=== PATIENT | male | born 1995 | race African-American/Black ===

== ENCOUNTER 2016-06-28 18:30 | Emergency (ER) | payer OTHER ==
[~2016-06-28] VITALS: Ht 176.5 cm; Wt 93.0 kg
[2016-06-28 18:39] VITALS: TEMP 36.8; Ht 176.5 cm; Wt 93.0 kg
[2016-06-28] MEDS ORDERED: KETOROLAC TROMETHAMINE 30 MG/ML VIAL IV STA (18:50)
[2016-06-28] MEDS ORDERED: ONDANSETRON INJ 2 MG/ML 2 ML VIAL IV STA (18:50)
[2016-06-28] MEDS ORDERED: SODIUM CHLORIDE 0.9% 1000ML 1,000 ML IV STA (18:50)
[2016-06-28 19:15] LABS: BASO % 0.2 %; BASO ABS # 0.02 K/uL (0-0.2); COMPLETE YES; EOS % 0.2 %; HEMATOCRIT 48.8 % (42-52); IG% 0.3 %; LYMPH % 16.5 %; LYMPH ABS # 1.78 K/uL (1.2-3.4); MEAN CELL VOLUME 85.5 fL (80-100); MEAN CORPUSCULAR HEMOGLOBIN 31.9 pg (25-34); MEAN CORPUSCULAR HGB CONC 37.3 g/dl (32-36); MEAN PLATELET VOLUME 10.8 fL (7.4-10.4); MONO % 8.4 %; NEUT % 74.4 %; PLATELET COUNT 230 K/uL (130-400); RED BLOOD COUNT 5.71 M/uL (4.7-6.1); WHITE BLOOD COUNT 10.79 K/uL (4.8-10.8)
[2016-06-28] MEDS ORDERED: GI COCKTAIL PO STA (19:17)
[2016-06-28] MEDS ORDERED: ALUMINUM/MAGNESIUM SUSP 30 ML UDC ONE (19:26)
[2016-06-28] MEDS ORDERED: LIDOCAINE HCL 2% VISC SOLN 20 ML UDC ONE (19:26)
[2016-06-28 19:30] LABS: URINE APPEARANCE CLOUDY (CLEAR); URINE BILIRUBIN NEG (NEG); URINE COLOR YELLOW; URINE NITRITE NEG (NEG); URINE SPECIFIC GRAVITY 1.029 (1.000-1.030); UROBILINOGEN NEG (NEG); ZZUR CULT IF INDIC CLEAN CATCH NO
[2016-06-28 19:31] LABS: MANUAL MICROSCOPIC REQUIRED? NO; REVIEW REQ? NO
[2016-06-28 19:35] LABS: BUN/CREATININE RATIO 15.5 (10-20); CALCIUM 9.2 mg/dl (8.5-10.1); CREATININE 1.3 mg/dl (0.60-1.40); POTASSIUM 3.7 mmol/L (3.5-5.1)
--- NOTE | 2016-06-28 20:43 | DIAGNOSTIC IMAGING REPORT ---
ULTRASOUND RIGHT UPPER QUADRANT ABDOMEN CLINICAL HISTORY: Vomiting. COMPARISON STUDY: No priors. TECHNIQUE: Real-time, grayscale, and color flow sonography of the right upper quadrant of the abdomen was performed. Images are reviewed in the transverse and longitudinal planes. FINDINGS: Liver: The liver is normal in size and echotexture. There is no intrahepatic biliary ductal dilatation. The main portal vein is patent. Gallbladder: The gallbladder is normal in appearance. No gallstones are identified. There is no gallbladder wall thickening or pericholecystic fluid. A sonographic Puente's sign is reportedly absent. The common bile duct measures up to 0.3 cm in diameter. Pancreas: Visualized portions of the pancreatic head and body are normal in appearance. The splenic vein is patent. Right kidney: Survey images of the right kidney demonstrate normal size. Cortical echotexture appears increased. There is no hydronephrosis. Ascites: None. IMPRESSION: 1. There is no acute sonographic abnormality identified in the right upper quadrant. No gallstones are identified. 2. Cortical echotexture of the right kidney appears increased. Correlate clinically and with serum creatinine levels for evidence of medical renal disease. Electronically signed by: Caleb Ernst M.D. 06/28/2016 8:40 PM Dictated Date/Time: 06/28/2016 8:39 PM
[2016-06-28] MEDS ORDERED: MoRPHine SULFATE 4 MG/ML 1 ML CARP\\VIAL IV STA (20:52)
--- NOTE | 2016-06-28 20:54 | DIAGNOSTIC IMAGING REPORT ---
PA CHEST WITH ABDOMINAL SERIES CLINICAL HISTORY: Generalized abdominal pain. Nausea and vomiting. FINDINGS: A PA chest radiograph is obtained. No prior studies are available for comparison at the time of dictation. The cardiomediastinal silhouette is unremarkable. The lungs and pleural spaces are clear. No pneumothorax is seen. The bony thorax is grossly intact. Supine and erect abdominal radiograph are correlated with abdominal ultrasound dated 06/28/2016. There is a nonobstructed abdominal bowel gas pattern. No intraperitoneal free air is seen. No abnormal abdominal calcifications are identified. There is no evidence of organomegaly. The lumbosacral spine and bony pelvis appear intact. IMPRESSION: 1. No active disease in the chest. 2. Unremarkable abdominal radiographs. Electronically signed by: Caleb Ernst M.D. 06/28/2016 8:52 PM Dictated Date/Time: 06/28/2016 8:50 PM
[2016-06-28] MEDS ORDERED: FAMOTIDINE 20 MG TAB PO STA (20:59)
[2016-06-28] MEDS ORDERED: ONDA4TAB46 PO (21:06)
[2016-06-28] MEDS ORDERED: FAMO20TA11 PO (21:06)
[2016-06-28 21:19] VITALS: BP 128/79; PULSE 77; O2SAT 96
--- NOTE | 2016-06-28 21:45 | EMERGENCY ROOM VISIT NOTE ---
History Report prepared by Scribe: Rochelle Figueroa Under the Supervision of: Dr. Sonny Kamara D.O. First contact with patient: 18:42 Chief Complaint: ABDOMINAL PAIN Stated Complaint: ABD PAIN History of Present Illness The patient is a 20 year old male who presents to the Emergency Room with complaints of persistent abdominal pain that started last night. He is accompanied by several friends. The patient rates his pain as a 10/10. He has been nauseous since last night and states he vomited last night, again this morning and just prior to arrival at the ED. He denies any diarrhea. The patient admits to heavy ETOH use last night. He states he was drinking "whiskey , vodka and rum". He reports the nausea and vomiting started shortly after he finished drinking. Something similar has never happened to him before. He denies any history of previous abdominal surgeries. He notes his Father was sick over [place], but he is not sure what he had. The patient denies any headache, change in vision, fevers, chest pain, shortness of breath, pain with urination, and melena. Source of History: patient Onset: this morning Position: abdomen Symptom Intensity: 10/10 Timing: other (persistent) Modifying Factors (Worsening): other (heavy ETOH use last night) Associated Symptoms: + diarrhea, + nausea, + vomiting, No SOB, No chest pain , No fevers, No headache, No melena, No urinary symptoms Review of Systems See HPI for pertinent positives & negatives. A total of 10 systems reviewed and were otherwise negative. Past Medical & Surgical Medical Problems: (1) No significant past medical history Social History Smoking Status: Former Smoker Alcohol Use: occasionally Drug Use: none Marital Status: single Housing Status: lives with roommate Occupation Status: [employer] student Current/Historical Medications Scheduled Famotidine (Pepcid), 20 MG PO DAILY Scheduled PRN Ondansetron Hcl (Zofran), 4 MG PO TID PRN for Nausea Allergies Coded Allergies: No Known Allergies (Unverified , 06/28/16) Physical Exam Vital Signs Date Time Temp Pulse Resp B/P Pulse Ox O2 Delivery O2 Flow Rate FiO2 06/28/16 21:19 77 18 128/79 96 06/28/16 18:39 36.8 84 18 123/81 97 Room Air Physical Exam GENERAL: Patient is sitting up in bed, alert, well appearing, well nourished, in moderate distress, holding abdomen, non-toxic EYE EXAM: normal conjunctiva OROPHARYNX: no exudate, no erythema, lips, buccal mucosa, and tongue normal and mucous membranes are moist NECK: supple, no nuchal rigidity, no adenopathy, non-tender LUNGS: Clear to auscultation. Normal chest wall mechanics HEART: no murmurs, S1 normal and S2 normal ABDOMEN: abdomen soft, non-tender, normo-active bowel sounds, no masses, no rebound or guarding. BACK: Back is symmetrical on inspection and there is no deformity, no midline tenderness, no CVA tenderness. SKIN: no rashes and no bruising UPPER EXTREMITIES: upper extremities are grossly normal. LOWER EXTREMITIES: No pitting edema. NEURO EXAM: Normal sensorium, cranial nerves II-XII grossly intact, normal speech, no gross weakness of arms, no gross weakness of legs. Gross sensation intact. Medical Decision & Procedures ER Provider Diagnostic Interpretation: This X-Ray was reviewed and interpreted by myself and the radiologist. PA CHEST WITH ABDOMINAL SERIES IMPRESSION: 1. No active disease in the chest. 2. Unremarkable abdominal radiographs. Electronically signed by: Caleb Ernst M.D. 06/28/2016 8:52 PM This Ultrasound was reviewed and interpreted by the radiologist and reviewed by myself. ULTRASOUND RIGHT UPPER QUADRANT ABDOMEN IMPRESSION: 1. There is no acute sonographic abnormality identified in the right upper quadrant. No gallstones are identified. 2. Cortical echotexture of the right kidney appears increased. Correlate clinically and with serum creatinine levels for evidence of medical renal disease. Electronically signed by: Caleb Ernst M.D. 06/28/2016 8:40 PM Laboratory Results 06/28/16 19:00 Red Blood Count 5.71, Mean Corpuscular Volume 85.5, Mean Corpuscular Hemoglobin 31.9, Mean Corpuscular Hemoglobin Concent 37.3, Mean Platelet Volume 10.8, Neutrophils (%) (Auto) 74.4, Lymphocytes (%) (Auto) 16.5, Monocytes (%) (Auto) 8.4, Eosinophils (%) (Auto) 0.2, Basophils (%) (Auto) 0.2, Neutrophils # (Auto) 8.03, Lymphocytes # (Auto) 1.78, Monocytes # (Auto) 0.91, Eosinophils # (Auto) 0.02, Basophils # (Auto) 0.02 06/28/16 19:00 Test 06/28/16 19:00 06/28/16 19:13 White Blood Count 10.79 K/uL (4.8-10.8) Red Blood Count 5.71 M/uL (4.7-6.1) Hemoglobin 18.2 g/dL (14.0-18.0) Hematocrit 48.8 % (42-52) Mean Corpuscular Volume 85.5 fL (80-100) Mean Corpuscular Hemoglobin 31.9 pg (25-34) Mean Corpuscular Hemoglobin Concent 37.3 g/dl (32-36) Platelet Count 230 K/uL (130-400) Mean Platelet Volume 10.8 fL (7.4-10.4) Neutrophils (%) (Auto) 74.4 % Lymphocytes (%) (Auto) 16.5 % Monocytes (%) (Auto) 8.4 % Eosinophils (%) (Auto) 0.2 % Basophils (%) (Auto) 0.2 % Neutrophils # (Auto) 8.03 K/uL (1.4-6.5) Lymphocytes # (Auto) 1.78 K/uL (1.2-3.4) Monocytes # (Auto) 0.91 K/uL (0.11-0.59) Eosinophils # (Auto) 0.02 K/uL (0-0.5) Basophils # (Auto) 0.02 K/uL (0-0.2) RDW Standard Deviation 39.9 fL (36.4-46.3) RDW Coefficient of Variation 12.8 % (11.5-14.5) Immature Granulocyte % (Auto) 0.3 % Immature Granulocyte # (Auto) 0.03 K/uL (0.00-0.02) Anion Gap 13.0 mmol/L (3-11) Est Creatinine Clear Calc Drug Dose 102.1 ml/min Estimated GFR () 90.4 Estimated GFR (Non- 78.0 BUN/Creatinine Ratio 15.5 (10-20) Calcium Level 9.2 mg/dl (8.5-10.1) Total Bilirubin 1.2 mg/dl (0.2-1) Direct Bilirubin 0.2 mg/dl (0-0.2) Aspartate Amino Transf (AST/SGOT) 28 U/L (15-37) Alanine Aminotransferase (ALT/SGPT) 42 U/L (12-78) Alkaline Phosphatase 120 U/L (45-117) Total Protein 7.8 gm/dl (6.4-8.2) Albumin 4.2 gm/dl (3.4-5.0) Lipase 99 U/L (73-393) Urine Color YELLOW Urine Appearance CLOUDY (CLEAR) Urine pH 5.0 (4.5-7.5) Urine Specific [place] 1.029 (1.000-1.030) Urine Protein NEG (NEG) Urine Glucose (UA) NEG (NEG) Urine Ketones TRACE (NEG) Urine Occult Blood NEG (NEG) Urine Nitrite NEG (NEG) Urine Bilirubin NEG (NEG) Urine Urobilinogen NEG (NEG) Urine Leukocyte Esterase NEG (NEG) Urine WBC (Auto) 1-5 /hpf (0-5) Urine RBC (Auto) 0-4 /hpf (0-4) Urine Hyaline Casts (Auto) 5-10 /lpf (0-5) Urine Epithelial Cells (Auto) 10-20 /lpf (0-5) Urine Bacteria (Auto) NEG (NEG) Laboratory results per my review. Medications Administered Medications (Trade) Dose Ordered Sig/Marian Route Start Time Stop Time Status Last Admin Dose Admin Sodium Chloride (Nss 1000ml) 1,000 ml @ 999 mls/hr Q1H1M STAT IV 06/28/16 18:50 06/28/16 19:50 DC 06/28/16 19:06 999 MLS/HR Ondansetron HCl (Zofran Inj) 4 mg NOW STAT IV 06/28/16 18:50 06/28/16 18:54 DC 06/28/16 19:06 4 MG Ketorolac Tromethamine (Toradol Inj) 30 mg NOW STAT IV 06/28/16 18:50 06/28/16 18:54 DC 06/28/16 19:07 30 MG Al Hydroxide/Mg Hydroxide (Maalox Susp) 30 ml STK-MED ONCE .ROUTE 06/28/16 19:26 06/28/16 19:28 DC 06/28/16 19:34 30 ML Lidocaine HCl (Viscous Lidocaine 2% Soln) 20 ml STK-MED ONCE .ROUTE 06/28/16 19:26 06/28/16 19:28 DC 06/28/16 19:34 20 ML Morphine Sulfate (MoRPHine SULFATE INJ) 4 mg NOW STAT IV 06/28/16 20:52 06/28/16 20:53 DC 06/28/16 21:01 4 MG Famotidine (Pepcid Tab) 20 mg NOW STAT PO 06/28/16 20:59 06/28/16 21:00 DC 06/28/16 20:59 20 MG ED Course ED COURSE: Vital signs were reviewed and showed normal vital signs. The patients medical record was reviewed The above diagnostic studies were performed and reviewed. ED treatments and interventions as stated above. 1845: The patient was evaluated in room B11. A complete history and physical examination was performed. 1849: Toradol 30 mg IV, Zofran 4 mg IV, NSS 1000 ml @ 999 mls/hr IV. 1925: Lidocaine HCl 20 ml PO, Maalox Susp 30 ml PO. 1999: I reevaluated the patient. He is resting comfortably. 2049: Nursing informed me the patient is complaining of more pain. I will put in medication orders. 2051: Morphine Sulfate 4 mg IV. 2058: Pepcid Tab 20 mg PO. 2104: Upon reevaluation, the patient is feeling much better. I discussed my findings with the patient and he understands and agrees with the treatment plan. Based on the patients age, coexisting illnesses, exam and lab findings the decision to treat as an outpatient was made. The patient remained stable while under my care. The patient appeared well at the time of discharge. Medical Decision Differential diagnoses includes but is not limited to gastritis, peptic ulcer disease, GERD, gallbladder disease, pancreatitis, small bowel obstruction, acute coronary syndrome, pericarditis, ischemic bowel, irritable bowel disease, irritable bowel syndrome, appendicitis, diverticulitis, malignancy, hernia, urinary tract infection, torsion, perforation, trauma, infectious. Patient is a 20-year-old male who presents the ER for diffuse abdominal pain associated with vomiting. He notes that this started late last night following heavy drinking. He has persisted through this morning and today. He has had some similar before in the past. He notes he is unable to keep anything down. Labs show no significant leukocytosis or anemia. His abdominal exam is completely benign. No signs peritonitis. BMP was unremarkable along with LFTs , bilirubin and lipase. UA was negative as well. Ultrasound of his gallbladder was unremarkable. Obstruction series and chest x-ray was negative. Patient was given a GI cocktail and he had significant improvement of his pain. He is also given Toradol and morphine with a GI cocktail wore off. I do favor his symptoms are secondary to gastritis with the drinking and vomiting. There is no obvious obstruction. Patient was given Pepcid prior to discharge as well. He is discharged with Pepcid and Zofran instructed to refrain from drinking for the next week. Based on his history and presentation I do feel this is consistent with a likely gastritis secondary to drinking. Discussed with Pt concerning signs and symptoms to watch out for. Pt was instructed to follow up with their PCP and discussed with the patient their option to return to the ED at anytime for persistent or worsening symptoms. The appropriate anticipatory guidance and out-patient management, including indications for return to the emergency department, were explained at length to the patient and understood. Impression Primary Impression: Gastritis Additional Impression: Vomiting Scribe Attestation The scribe's documentation has been prepared under my direction and personally reviewed by me in its entirety. I confirm that the note above accurately reflects all work, treatment, procedures, and medical decision making performed by me. Departure Information Dispostion Home / Self-Care Prescriptions Ondansetron Hcl (ZOFRAN) 4 Mg Tab 4 MG PO TID Y for Nausea, #20 TAB Prov: Sonny Kamara, DO 06/28/16 Famotidine (Pepcid) 20 Mg Tab 20 MG PO DAILY, #30 TAB Prov: Sonny Kamara, DO 06/28/16 Referrals No Doctor, Assigned (PCP) Patient Instructions ED Gastritis, My [facility] Additional Instructions Please follow up with your primary care doctor or if you are a student [employer] with in the next 24 hours. Any worsening of your symptoms, please return to the ED immediately. This includes persistent vomiting, worsening pain, fevers greater than 100.4, vomiting blood, or any other concerning signs or symptoms from your standpoint. Please refrain from drinking any alcohol for the next week. Please take Zofran as needed for nausea. Please take Pepcid as prescribed. Problem Qualifiers Primary Impression: Gastritis Gastritis type: alcoholic Chronicity: acute Gastritis bleeding: without bleeding Qualified Codes: K29.20 - Alcoholic gastritis without bleeding Additional Impression: Vomiting Vomiting type: unspecified Vomiting Intractability: non-intractable Nausea presence: with nausea Qualified Codes: R11.2 - Nausea with vomiting, unspecified
== END 2016-06-28 21:19 | disposition home or self-care (01) ==
LOC: C.EDB 18:32
DX: K29.70 Gastritis, unspecified, without bleeding (principal); Z87.891 Personal history of nicotine dependence